=== PATIENT | male | born 1955 | race Caucasian/White ===

== ENCOUNTER → 2025-03-04 08:29 | Outpatient (CLI) | payer OTHER, SELFPAY ==
[2025-03-04 09:29] LABS: Appearance Urine UA CLEAR; Bilirubin Urine UA NEGATIVE (NEGATIVE); Color Urine UA YELLOW; Glucose Urine UA NEGATIVE (Negative); Ketones Urine UA NEGATIVE (NEGATIVE); Leukocyte Esterase Urine UA NEGATIVE (NEGATIVE); Nitrite Urine UA NEGATIVE (Negative); Occult Blood Urine UA NEGATIVE (Negative); Protein Urine UA NEGATIVE (Negative); Specific Gravity Urine UA 1.010 (1.000-1.035); Urobilinogen Urine UA 4.0 E.U./dL (0.2); pH Urine UA 6.0 (4.5-8.0)
[2025-03-04 09:33] LABS: Culture Indicated Urine Cult Not Indicated
--- NOTE | 2025-03-04 09:57 | DI.ECHO.S_ITS ---
[facility] : : [address] : : [place] : : [id number] : : Phone: [phone] Echocardiogram Report + + :Name: JANET FARIA Study Date: 03/04/2025 Height: 72 in : :Hospital ReadingLocation: Weight: 300 lb: : Gender: Male BSA: 2.5 m2 : :: 1955 Age: 69 yrs : :Reason For Study: BRADYCARDIA : :Ordering Physician: VELMA, : :NATALIIA Performed By: Marin Hernandez : :Referring: NATALIIA CARREON : + + Interpretation Summary The ejection fraction is estimated to be 55-60%. Diastolic function could not be accurately assessed due to atrial fibrillation. The right ventricle is severely dilated. The right ventricular systolic function is normal. The right ventricular systolic pressure is estimated to be at least 48 mmHg based on an estimated right atrial pressure of 8 mm Hg. There is mild to moderate tricuspid regurgitation. The left atrium is severely dilated. The right atrium is severely dilated. The ascending aorta is mildly enlarged 4.0cm. Procedure: A two-dimensional transthoracic echocardiogram with color flow and Doppler was performed. The study quality was technically adequate. There is no prior echocardiogram noted for this patient. The patient was in atrial fibrillation with heart rates between 36-64 bpm during the exam. Left Ventricle: The left ventricle is normal in size. There is normal left ventricular wall thickness. There is no ventricular septal defect visualized. The ejection fraction is estimated to be 55-60%. There are no focal wall motion abnormalities. Diastolic function could not be accurately assessed due to atrial fibrillation. Right Ventricle: The right ventricle is severely dilated. The right ventricular systolic function is normal. Atria: The left atrium is severely dilated. The right atrium is severely dilated. There is no Doppler evidence for an interatrial shunt. Mitral Valve: The mitral valve leaflets appear normal. There is no evidence of stenosis, fluttering, or prolapse. There is trace mitral regurgitation. Aortic Valve: The aortic valve is trileaflet. The aortic valve opens well. There is no aortic valve stenosis. There is trace aortic regurgitation. Tricuspid Valve: The tricuspid valve leaflets are thin and pliable. There is mild to moderate tricuspid regurgitation. The right ventricular systolic pressure is estimated to be at least 48 mmHg based on an estimated right atrial pressure of 8 mm Hg. Pulmonic Valve: The pulmonic valve is not well seen, but is grossly normal. There is trace pulmonic regurgitation. Great Vessels: The aortic root is mildly dilated. The ascending aorta is mildly enlarged. The pulmonary artery is normal size. The IVC is dilated (diameter is greater than 2.1 cm) yet it collapses greater than 50% with a sniff. This suggests a right atrial pressure of 8 mm Hg. Pericardium/ Pleura There is no pericardial effusion. There is no pleural effusion. MMode/2D Measurements & Calculations LVIDd: 5.0 cm LVOT diam: 2.2 cm LVIDs: 3.9 cm Ao root diam: 3.9 cm FS: 20.7 % asc Aorta Diam: 4.0 cm EPSS: 0.75 cm IVSd: 1.0 cm LVPWd: 1.0 cm LV gross. diameter/BSA (cm/m^2): 2.0 LV sys. diameter/BSA (cm/m^2): 1.6 LA A2 area: 33.1 cm2 RA long axis: 7.2 cm LA A4 area: 34.5 cm2 RA area: 30.5 cm2 LA length (vol): 7.4 cm RA vol: 109.9 ml LA vol: 131.6 ml RA : 43.4 ml/m2 LA vol index: 52.0 ml/m2 IVC diam: 3.0 cm RVD1 (basal): 5.7 cm RVD2 (mid): 3.8 cm TAPSE: 2.9 cm Doppler Measurements & Calculations Ao V2 max: 147.2 cm/sec LVOT Max Rosendo: 124.4 cm/sec Ao V2 mean: 96.0 cm/sec LV V1 max P.2 mmHg Ao max P.7 mmHg LV V1 VTI: 29.8 cm Ao mean P.2 mmHg NIRANJAN(I,D): 3.2 cm2 Ao V2 VTI: 35.1 cm NIRANJAN(V,D): 3.1 cm2 sev ratio: 0.85 NIRANJAN indexed to BSA (cm^2/m^2): 1.3 MV E max rosendo: 55.8 cm/sec TR max rosendo: 316.9 cm/sec MV A max rosendo: 13.0 cm/sec TR max P.2 mmHg MV E/A: 4.3 PA V2 max: 96.3 cm/sec Med Peak E' Rosendo: 5.7 cm/sec PA V2 mean: 70.6 cm/sec E/E' med: 9.9 PA mean P.1 mmHg Lat Peak E' Rosendo: 5.2 cm/sec PA pr(Accel): 43.0 mmHg E/E' lat: 10.8 E/e' average: 10.3 MV dec time: 0.59 sec SV([facility]): 111.0 ml Reading Physician:01:[id number] PM
[2025-03-04 10:07] LABS: Alanine Aminotransferase 16 IU/L (<50); Albumin 4.2 g/dL (3.5-5.0); Albumin Globulin Ratio 1.5 (1.0-2.8); Alkaline Phosphatase 169 U/L (38-126); Blood Urea Nitrogen 19 mg/dL (9-20); Calcium 9.0 mg/dL (8.4-10.2); Carbon Dioxide 25 mmol/L (22-32); Chloride 102 mmol/L (98-107); Estimated Glomerular Filt Rate > 60 mL/min (>60); Globulin 2.8 g/dL (1.7-4.1); Glucose 152 mg/dL (70-99); HEMOLYSIS 20 (0-50); Potassium 3.8 mmol/L (3.4-5.1); Sodium 139 mmol/L (137-145); Total Protein 7.0 g/dL (6.3-8.2)
--- NOTE | 2025-03-04 10:29 | EKG_ITS ---
[id number] [address] Test Date: 2025-03-04 Pat Name: Tamir Goyal Department: DEFAULT Room: Gender: Male [employer]: JENIFER : 1955 Requested By: Order Number: [id number] Reading MD: Abdi Bose MD Measurements Intervals Russell Rate: 56 P: MT: QRS: 38 QRSD: 90 T: -50 QT: 476 QTc: 459 Interpretive Statements Undetermined rhythm Nonspecific ST and T wave abnormality NO PRIOR TRACING Electronically Signed On 03-04-2025 16:58:31 PDT by Abdi Bose MD
== END ==
PROVIDERS: Referring Provider Chiropractor; Visit Provider Chiropractor
DX: I07.1 Rheumatic tricuspid insufficiency (principal); I77.810 Thoracic aortic ectasia; I77.89 Other specified disorders of arteries and arterioles; R00.1 Bradycardia, unspecified; E11.9 Type 2 diabetes mellitus without complications
CPT/HCPCS: 36415; 80053; 81001; 93005; 93010; 93306